=== PATIENT | male | born 1965 | race Caucasian/White ===

== ENCOUNTER 2020-02-24 06:12 | Outpatient (CLI) | payer BC, OTHER ==
[2020-02-24 16:10] LABS: #Basophils 0.1 thou/uL (0.0-0.2); #Lymphocytes 3.2 thou/uL (1.20-3.40); #Monocytes 0.7 thou/uL (0.11-0.59); #Neutrophils 5.8 thou/uL (1.40-6.50); %Basophils 0.7 % (0.0-1.0); %Eosinophils 0.3 % (0.0-10.0); %Lymphocytes 32.5 % (21.0-51.0); %Monocytes 7.1 % (0.0-10.0); %Neutrophils 59.3 % (42.0-75.0); Hemoglobin 16.1 g/dL (14.0-18.0); Mean Corpuscular HGB CONC 33.6 g/dL (32.0-36.0); Mean Corpuscular Hemoglobin 30.8 pg (27.0-31.0); Mean Corpuscular Volume 91.7 fL (78.0-98.0); Mean Platelet Volume 7.8 fL (7.4-10.4); Platelet Count 282 thou/uL (130-400); RBC Distribution Width 11.3 % (11.5-14.5); Red Blood Cell (RBC) Count 5.21 mill/uL (4.70-6.10); White Blood Cell (WBC) Count 9.7 thou/uL (4.8-10.8)
[2020-02-24 17:22] LABS: Chloride 102 mmol/L (98-107); Potassium 4.7 mmol/L (3.5-5.1); Sodium 136 mmol/L (136-145)
[2020-02-24 17:23] LABS: Calcium 9.9 mg/dL (7.8-10.44); Glucose 102 mg/dL (70-105); Triglycerides 340 mg/dL (Less than 150)
[2020-02-24 17:24] LABS: Globulin 2.6 g/dL (2.4-3.5); Protein, Total 7.6 g/dL (6.0-8.3)
[2020-02-24 17:25] LABS: Anion Gap 20 mmol/L (10-20); Bilirubin, Total 0.4 mg/dL (0.2-1.2); Carbon Dioxide 19 mmol/L (22-29)
[2020-02-24 17:26] LABS: Alkaline Phosphatase 76 U/L (40-110)
[2020-02-24 17:27] LABS: Calc. Creatinine Clearance 0 mL/min (70-130); Estimated GFR-MDRD Greater than 90
[2020-02-24 17:28] LABS: AST (SGOT) 21 U/L (5-34); BUN (Urea Nitrogen) 13 mg/dL (8.4-25.7); Cholesterol 263 mg/dl (< 200 Desired)
[2020-02-24 17:29] LABS: ALT (SGPT) 27 U/L (8-55); Cardiac Risk 7.5 (Less than 4.5); HDL Cholesterol 35 mg/dL (>60 Neg Risk); LDL Cholesterol, Calculated 160 mg/dL
[2020-02-25 13:23] LABS: SARS-CoV-2 MS2 Positive; SARS-CoV-2 N Gene Negative; SARS-CoV-2 S Gene Negative; SARS-CoV-2 by NAA Not Detected (NotDetected); SARS-CoV-2 orf1ab Negative
== END 2020-02-24 06:13 | disposition home or self-care (01) ==
LOC: LABBT 06:12
PROVIDERS: ATTEND Internal Medicine Cardiovascular Disease
DX: Z01.818 Encounter for other preprocedural examination (principal); Z20.828 Contact with and (suspected) exposure to other viral communicable diseases; I42.0 Dilated cardiomyopathy
CPT/HCPCS: 80053; 80061; 85025; 87635; 93005; 93010; U0003

== ENCOUNTER 2020-02-27 05:47 | Day surgery (SDC) | payer BC ==
[2020-02-25 14:35] VITALS: BMI 25.0
[2020-02-27] MEDS ORDERED: Lidocaine 1% (PF) 30 ML VIAL ONE (06:35)
[2020-02-27] MEDS ORDERED: Midazolam HCl 2 mg/2 ml Vial ONE (07:42)
[2020-02-27] MEDS ORDERED: Fentanyl 100 MCG/2 ML VIAL ONE (07:42)
[2020-02-27] MEDS ORDERED: Heparin 10,000 UNITS/ 10 ML VIAL ONE (08:07)
[2020-02-27] MEDS ORDERED: Nitroglycerin 100MG/250ML BOT 250 ML ONE (08:17)
[2020-02-27] MEDS ORDERED: TICAGRELOR 90 MG TABLET ONE (08:17)
[2020-02-27] MEDS ORDERED: Iopamidol 370 76% 100 ML VIAL ONE (09:18)
[2020-02-27] MEDS ORDERED: Iopamidol 370 76% 50 ML VIAL FS ONE (09:19)
== END 2020-02-27 11:00 | disposition home or self-care (01) ==
LOC: CCL 05:47
PROVIDERS: ATTEND Internal Medicine Cardiovascular Disease
DX: I25.110 Atherosclerotic heart disease of native coronary artery with unstable angina pectoris (principal); I42.0 Dilated cardiomyopathy; I10 Essential (primary) hypertension; F17.210 Nicotine dependence, cigarettes, uncomplicated; E78.00 Pure hypercholesterolemia, unspecified; K21.9 Gastro-esophageal reflux disease without esophagitis; E78.5 Hyperlipidemia, unspecified; Z79.899 Other long term (current) drug therapy; Z88.0 Allergy status to penicillin; Z88.8 Allergy status to other drugs, medicaments and biological substances
CPT/HCPCS: 85347; 92928; 93458; 97139; 99152; C1760; C1874; C9600; J1644; J2001; J2250; J3010